=== PATIENT | female | born 2000 | race Caucasian/White ===

== ENCOUNTER 2020-03-11 16:54 | Emergency (ER) | payer MEDICAID ==
[~2020-03-11] VITALS: Ht 154.9 cm; Wt 49.9 kg
[2020-03-11 17:04] VITALS: BP 112/74
--- NOTE | 2020-03-11 17:23 | NUR ---
SEEN BY HER PRESS BOX CUSTODIAN LAST WEEK ---GIVEN A PILL TO [facility] AMBULATED TO OUR ER FOR HEAVY MENSES WITH LARGE CLOTS AND ABDOMINAL /BACK PAIN
[2020-03-11] MEDS ORDERED: ONDANSETRON 4 MG/2 ML VIAL IVP ONE (17:25)
[2020-03-11] MEDS ORDERED: MORPHINE SULFATE 4 MG/ML SYR IVP ONE ×2 (17:25→20:30)
[2020-03-11 18:00] LABS: BASOPHILS # (AUTO) 0.1 K/uL (0.00-0.22); BASOPHILS % (AUTO) 0.8 % (0.0-2.0); EOSINOPHILS # (AUTO) 0.1 K/uL (0-0.4); EOSINOPHILS % (AUTO) 1.7 % (0.0-4.0); HEMATOCRIT 34.4 % (36-48); HEMOGLOBIN 11.6 g/dL (12.0-16.0); LYMPHOCYTES # (AUTO) 1.7 K/uL (2.5-16.5); LYMPHOCYTES % (AUTO) 21.7 % (20.5-51.1); MEAN CORPUSCULAR HEMOGLOBIN 31 pg (27-31); MEAN CORPUSCULAR HGB CONC 34 g/dL (33-37); MEAN CORPUSCULAR VOLUME 91.9 fL (80-94); MONOCYTES # (AUTO) 0.5 K/uL (0.8-1.0); MONOCYTES % (AUTO) 6.2 % (1.7-9.3); NEUTROPHILS # (AUTO) 5.6 K/uL (1.8-7.7); NEUTROPHILS % (AUTO) 69.6 % (42.2-75.2); PLATELET COUNT (AUTO) 177 K/uL (140-450); RED BLOOD CELL COUNT(AUTO) 3.75 MIL/uL (4.20-5.40); RED CELL DISTRIBUTION WIDTH 13.1 % (11.6-13.7)
[2020-03-11 18:03] LABS: ANION GAP 13.7 (8-16); CARBON DIOXIDE 27.7 mmol/L (21-32); CREATININE 0.7 mg/dL (0.6-1.3); POTASSIUM 3.4 mmol/L (3.5-5.1)
--- NOTE | 2020-03-11 18:47 | NUR ---
RESTING WITH OU CLOSED, NO GRIMACE NO MOAN---CONTINUE TO OBSERVE FOR PAIN CONTROL
--- NOTE | 2020-03-11 19:12 | NUR ---
RECIEVED REPORT FROM MIGNON RIVAS. TRANSFER OF CARE AT THIS TIME.
[2020-03-11] MEDS ORDERED: METHYLERGONOVINE 0.2 MG/ML AMP IM ONE (19:35)
--- NOTE | 2020-03-11 20:00 | NUR ---
PT STILL REPORTING 9/10 PAIN, CHRISTIANED MADE AWARE.
--- NOTE | 2020-03-11 20:03 | NUR ---
RhoGAM IM consent form signed. pt able to ask questions, risk and benefits explained to pt. RhoGAM picked up at lab with pt consent, PT L# and LOT # checked by Deanna CROW and blood bank civil laboratory technician. TWO RNS identified dose, route, expiration, right pt. administered in R deltoid. NADR.
[2020-03-11] MEDS ORDERED: IBUPROFEN 600 MG TAB ONE (20:09)
[2020-03-11] MEDS ORDERED: IBUPROFEN 600 MG TAB PO ONE (20:10)
--- NOTE | 2020-03-11 20:40 | NUR ---
PT STILL REPORTING 9/10 PAIN, CHRISTIANED MADE AWARE.
--- NOTE | 2020-03-11 21:15 | NUR ---
CALLED [facility] TO GIVE REPORT FOR PT. SPOKE TO EV WHO TOLD ME TO CALL BACK IN 7 MINUTES BECAUSE NURSE CAUSTIC ROOM OPERATOR MAGDA WAS ON ANOTHER LINE.
[2020-03-11 21:30] VITALS: BP 116/74
--- NOTE | 2020-03-11 21:30 | NUR ---
Patient discharged with v/s stable. Written and verbal after care instructions given and explained. Patient alert, oriented and verbalized understanding of instructions. Wheel Chair Assisted with to car. All questions addressed prior to discharge. ID band removed. Patient advised to follow up with PMD. Rx of NORCO given. Patient educated on indication of medication including possible reaction and side effects. Opportunity to ask questions provided and answered.
--- NOTE | 2020-03-11 21:30 | NUR ---
Note undone in EDM - 03/11/20 at 2150 by [email or web address] Patient discharged with v/s stable. Written and verbal after care instructions given and explained. Patient alert, oriented and verbalized understanding of instructions. Ambulatory with steady gait. All questions addressed prior to discharge. ID band removed. Patient advised to follow up with PMD. Rx of NORCO given. Patient educated on indication of medication including possible reaction and side effects. Opportunity to ask questions provided and answered.
--- NOTE | 2020-03-11 21:30 | NUR ---
Note doreen in ED - 03/11/20 at 2148 by [email or web address] PT STATES HER PAIN HAS REDUCED TO 310. ALIREZA MADE AWARE.
== END 2020-03-11 21:30 | disposition home or self-care (01) ==
LOC: MED 16:54
DX: O03.9 Complete or unspecified spontaneous abortion without complication (principal); Z3A.08 8 weeks gestation of pregnancy
CPT/HCPCS: 36415; 76817; 80048; 84702; 85025; 86886; 86900; 86901; 96372; 96374; 96375; 96376; 99284; J2210; J2270; J2405; J2790; Q0092; 99285